=== PATIENT | female | born 1985 | race Caucasian/White ===

== ENCOUNTER 2023-10-13 07:43 | Inpatient (IN) ==
[2023-10-13] MEDS ORDERED: OXYTOCIN 30 UNITS/NSS 30 UNITS/500 ML BAG IV PRN ×3 (07:50→22:30)
[2023-10-13] MEDS ORDERED: LIDOCAINE 1% LOCAL 20 ML VIAL INFIL PRN (07:50)
--- NOTE | 2023-10-13 08:09 | History & Physical Report ---
Date of Service October 13, 2023 Assessment & Plan (1) Encounter for induction of labor: (2) Insulin controlled gestational diabetes mellitus (GDM) during : (3) Factor 5 Leiden mutation, heterozygous: Plan Pitocin AROM when indicated Monitor tracing, currently cat 1 Monitor BG q4 Admission and Anticipated Discharge Date Admission Date: October 13, 2023 History of Present Illness Primary Care Provider: Benigno Khoury 38 yo at 40w0d admitted for IOL for GDM. Gestational DM, Factor V Leiden on Heparin Denies BOURGEOIS, CP, SOB, N/V/D, LE pain. GBS neg, RH+ +fm -LOF -VB/VD Last dose heparin 10/12/23 PM Desires epidural Allergies Allergy/AdvReac Type Severity Reaction Status Date / Time No Known Allergies Allergy Mild Verified 10/12/23 14:43 Home Medications Medication Instructions Recorded Confirmed Type prenat.vits,amber,kmd-sfml-tnich 1 tab PO DAILY 03/03/23 10/13/23 History acetone (urine) test (Ketone Urine #50 ea 05/14/23 10/12/23 Rx Test strips) blood sugar diagnostic (OneTouch #150 ea 05/14/23 10/12/23 Rx Verio test strips) blood-glucose meter (OneTouch #1 ea 05/14/23 10/12/23 Rx Verio Reflect Meter) breast pump #1 ea 08/09/23 10/12/23 Rx pen needle, diabetic 32 gauge x #100 ea 08/30/23 10/12/23 Rx 5/32" (BD Ultra-Fine Lisbeth Pen Needle) insulin NPH isoph U-100 human 100 30 unit subcut QPM 09/07/23 10/13/23 History unit/mL (3 mL) subcutaneous pen (Novolin N FlexPen) heparin (bovine) 1,000 unit/mL 5,000 unit Q12 10/13/23 10/13/23 History injection solution Patient History Medical History (Updated 10/13/23 @ 08:17 by Jose Antonio Schultz DO) Melanoma Factor 5 Leiden mutation, heterozygous 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 High risk for intrapartum complications, antepartum Surgical History H/O dilation and curettage S/P lymph node biopsy S/P tooth extraction Family History Grandmother (Maternal) Breast cancer Father Factor V Leiden mutation Social History (Updated 10/13/23 @ 08:00 by Nae Carbajal, FIDENCIO) Smoking Status: Never smoker Do You Dip or Chew Tobacco: No; Hx Alcohol Use: No Hx Substance Use: No Preferred Language: Hong Konger Communication Ability: Effective Employee Communications Coordinator Required: No Beliefs That Will Affect Care: None marital status: marital status details: Stanislaw Palm (40) [phone] Current Living Situation: Spouse and Family Current Living Situation Comment: lives with , 2 daughters, & dog current occupational status: employed current occupation: [employer] office Other Information That Helps Us Care for You: No Feels Safe at Home: Yes Safety Concerns: Feels Safe At This Time Diet: regular Diet Comment: GDM Assistive Devices: None Review of Systems reviewed, per HPI Physical Exam Physical Exam: General: patient resting comfortably, NAD, non-toxic in appearance, answers questions appropriately. Skin: warm, dry, intact HEENT: NC/AT, anicteric sclera, conjunctiva without injection, moist mucus membranes Heart: +S1/S2, regular, no m/r/g Lungs: equal air entry bilaterally, no rales/rhonchi/wheezes Abd: +BS, soft, NT/ND, gravid uterus Cervical: 4|75|-2| Ext: warm, no clubbing/cyanosis or edema Neuro: speech intact, no facial droop, moving all extremities on command. : FHR baseline 130-140, moderate variability, accelerations present, decelerations absent Results & Data Vital Signs (Past 12 Hours) Vital Signs Pulse BP 10/13/23 07:55 78 117/62 Supervising Physician Co-Signing Physician Notes Resident Physician Supervision Note: I interviewed and examined the patient. Discussed with and agree with findings and plan as documented in the note. Any exceptions or clarifications are listed here: [None] Documented By: Yamila Norman MD, FACOG Resident Activity Tracking Resident Involvement: Resident Care Provided Care Provided: Adult Hospital Medicine
[2023-10-13 08:21] LABS: Hematocrit (blood only) 33.6 % (37.0-47.0); Hemoglobin 11.6 g/dl (12.0-16.0); Mean Corpuscular Hemoglobin 29.7 pg (25.0-34.0); Mean Corpuscular Hgb Conc 34.5 g/dL (32.0-36.0); Mean Corpuscular Volume 86.2 fL (80.0-100.0); Mean Platelet Volume 11.3 fL (9.4-12.4); Platelet Count 141 K/uL (130-400); RDW Coefficient of Variation 15.5 % (11.5-14.5); White Blood Count 7.94 K/ul (4.8-10.8)
[2023-10-13] MEDS: LACTATED RINGER'S 1,000 ML IV PRN ×3 (09:15→17:24)
[2023-10-13] MEDS ORDERED: fentaNYL citrate PF 100 MCG/2 ML VIAL ONE (12:53)
[2023-10-13] MEDS ORDERED: ePHEDrine sulfate 50 MG/ML AMP ONE ×2 (12:53→13:00)
[2023-10-13] MEDS ORDERED: BUPIVACAINE 0.25% PF 30 ML VIAL ONE (12:53)
[2023-10-13] MEDS ORDERED: fentANYL 2 MCG/ML BUPIVacaine 0.125%-NSS 100ML BAG ONE (12:53)
[2023-10-13] MEDS ORDERED: LIDOCAINE 2%/EPINEPHRINE 1:200,000 20 ML PF ONE (12:53)
[2023-10-13] MEDS ORDERED: SODIUM CHLORIDE 0.9% PF INJ 10 ML VIAL ONE (12:53)
[2023-10-13] MEDS ORDERED: NALOXONE HCL 1 MG in SODIUM CHLORIDE 0.9% 1,000 ML IV PRN (13:21)
[2023-10-13] MEDS ORDERED: ROPIVACAINE 0.5% PF 5 MG/ML 20 ML VIAL EPI PRN (13:21)
[2023-10-13] MEDS ORDERED: NALOXONE HCL 0.4 MG/1 ML VIAL/CARP IV PRN (13:21)
[2023-10-13] MEDS ORDERED: fentaNYL citrate PF 100 MCG/2 ML VIAL EPI STA (13:21)
[2023-10-13] MEDS ORDERED: ePHEDrine sulfate 50 MG/ML AMP IV PRN (13:21)
[2023-10-13] MEDS ORDERED: SODIUM CHLORIDE 0.9% PF INJ 10 ML VIAL EPI STA (13:21)
[2023-10-13] MEDS ORDERED: diphenhydrAMINE 50 MG/ML VIAL IV PRN (13:21)
[2023-10-13] MEDS ORDERED: BUPIVACAINE 0.25% PF 30 ML VIAL EPI STA (13:21)
[2023-10-13] MEDS ORDERED: fentaNYL citrate PF 100 MCG/2 ML VIAL IV PRN (13:21)
[2023-10-13] MEDS ORDERED: NALBUPHINE HCL 5 MG in SYRINGE 0 ML IV PRN (13:21)
[2023-10-13] MEDS ORDERED: fentANYL 2 MCG/ML BUPIVacaine 0.125%-NSS 100ML BAG EPI PRN (13:21)
[2023-10-13] MEDS ORDERED: LIDOCAINE 2%/EPINEPHRINE 1:200,000 20 ML PF EPI STA (13:21)
[2023-10-13] MEDS ORDERED: BUPIVACAINE 0.25% PF 30 ML VIAL EPI PRN (13:21)
[2023-10-13] MEDS ORDERED: LIDOCAINE 2% MPF LOCAL 5 ML VIAL EPI PRN (13:21)
[2023-10-13] MEDS ORDERED: SODIUM CHLORIDE 0.9% PF INJ 10 ML VIAL EPI PRN (13:21)
[2023-10-13] MEDS ORDERED: fentaNYL citrate PF 100 MCG/2 ML VIAL EPI PRN (13:21)
--- NOTE | 2023-10-13 13:21 | Anesthesiology Consultation ---
Date of Service October 13, 2023 Assessment & Plan (1) Encounter for pre-operative examination: Chart Review Chart Review: Patient NOT seen in Pre Admission Testing and Acceptable Risk for Labor Epidural Consults Requested none History Height/Weight Height: 5 ft 3 in Weight: 91.626 kg Allergies Allergy/AdvReac Type Severity Reaction Status Date / Time No Known Allergies Allergy Mild Verified 10/12/23 14:43 Medications Home Medications Medication Instructions Recorded Confirmed Last Taken prenat.vits,amber,urv-qkzb-hkzgv 1 tab PO DAILY 03/03/23 10/13/23 10/12/23 acetone (urine) test (Ketone Urine #50 ea 05/14/23 10/12/23 Unknown Test strips) blood sugar diagnostic (OneTouch #150 ea 05/14/23 10/12/23 Unknown Verio test strips) blood-glucose meter (OneTouch #1 ea 05/14/23 10/12/23 Unknown Verio Reflect Meter) breast pump #1 ea 08/09/23 10/12/23 Unknown pen needle, diabetic 32 gauge x #100 ea 08/30/23 10/12/23 Unknown 32" (BD Ultra-Fine Lisbeth Pen Needle) insulin NPH isoph U-100 human 100 30 unit subcut QPM 09/07/23 10/13/23 10/12/23 20:30 unit/mL (3 mL) subcutaneous pen (Novolin N FlexPen) heparin (bovine) 1,000 unit/mL 5,000 unit Q12 10/13/23 10/13/23 10/12/23 19:45 injection solution Active Medications Generic Name Dose Route Start Last Admin Trade Name Freq PRN Reason Stop Dose Admin Oxytocin 30 units in 500 mls @ 9 mls/hr 10/13/23 07:50 10/13/23 12:05 Pitocin 30 Units/Nss IV 10/15/23 07:49 0.54 units/hr .Q24H PRN 9 mls/hr Labor Induction/Augmentation Titration Protocol 0.54 UNITS/HR Lactated Ringer's 1,000 mls @ 125 mls/hr 10/13/23 07:50 10/13/23 13:11 Lr IV 10/15/23 07:49 999 mls/hr .Q8H PRN Infusion L&D Protocol Protocol Past Medical History Medical History Melanoma Factor 5 Leiden mutation, heterozygous 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 High risk for intrapartum complications, antepartum Past Family History Family History Grandmother (Maternal) Breast cancer Father Factor V Leiden mutation Past Surgical History Surgical History S/P lymph node biopsy H/O dilation and curettage MAB S/P tooth extraction Social History Smoking Status: Never smoker Do You Dip or Chew Tobacco: No Hx Alcohol Use: No Hx Substance Use: No Physical Exam Vital Signs Last Vital Signs Temp 98.1 F 10/13/23 11:12 Pulse 81 10/13/23 12:05 Resp 20 10/13/23 12:05 BP 122/68 10/13/23 12:05 Testing Laboratory Results 10/13/23 08:04 Blood Type AB Positive 10/13/23 08:04 Antibody Screen NEGATIVE 10/13/23 08:04 10/13/23 11:08 POC Glucose 78
--- NOTE | 2023-10-13 22:25 | Delivery Summary ---
Vaginal Delivery Summary Date of Service October 13, 2023 Vaginal Delivery Summary and 1st Degree LAC Patient is a 38-year-old 12 para 2-0-9-2 female EDC 10/13/2023 who presents for induction of labor because of GDM on insulin and factor V Leiden requiring heparin therapy. Pitocin induction was begun and membranes were ruptured for clear fluid. She received effective epidural analgesia. She progressed to full dilation and pushed effectively over intact perineum for d elivery of a viable female infant. Presentation was direct OP. After the head was delivered, the rest the infant delivered easily and was placed on the mother's abdomen for further attention and drying. She was vigorous crying and moving all 4 limbs. After 1 minute, the cord was clamped and cut. After cord blood was obtained, the placenta was expressed intact with a three-vessel cord. There was a true knot in the cord as an incidental finding. A first-degree perineal laceration was repaired with 3-0 chromic in usual fashion. Estimated blood loss is 200 cc. bleeding was controlled with dilute Pitocin and fundal massage. Her bladder was straight cathed for a small amount of urine at the end of the case. Mother and infant were doing well after delivery. MNP Vaginal Delivery Charge Delivery Type Details: and 1st Degree LAC
[2023-10-13] MEDS ORDERED: oxyCODONE/ACETAMINOPHEN 5mg/325mg TAB PO PRN (22:30)
[2023-10-13] MEDS ORDERED: BENZOCAINE 20% SPRY 85 APPLN/85 GM CAN EXT PRN (22:30)
[2023-10-13] MEDS ORDERED: IBUPROFEN 600 MG TAB PO PRN (22:30)
[2023-10-13] MEDS ORDERED: DIPHTHERIA/TETANUS/PERTUSSIS Vaccine (Tdap, Age 7+yrs) 0.5mL SYR/VL IM ONE (22:30)
[2023-10-13] MEDS ORDERED: HYDROCORTISONE ACETATE 25 MG SUPP PR PRN (22:30)
[2023-10-13] MEDS ORDERED: bisacodyL 10 MG SUPP PR PRN (22:30)
--- NOTE | 2023-10-13 22:39 | Anesthesia Procedure Note ---
Date of Service October 13, 2023 Anesthesia Post Epidural Note Vital Signs Vital Signs: Temp Pulse Resp BP Pulse Ox 98.2 F 88 18 134/66 95 10/13/23 20:10 10/13/23 22:36 10/13/23 20:10 10/13/23 22:36 10/13/23 22:34 Notes Mental Status: alert / awake / arousable and participated in evaluation Nausea / Vomiting: adequately controlled Pain: adequately controlled Airway Patency, RR, SpO2: stable & adequate BP & HR: stable & adequate Hydration State: stable & adequate Neuraxial Anesthesia: was administered and sensory block is resolving Anesthetic Complications: no major complications apparent and Pt Satisfied with anesthetic care Epidural: Removed without complications and With tip intact
[2023-10-14] MEDS: ACETAMINOPHEN 325 MG TAB PO PRN ×2 (02:51→08:15)
--- NOTE | 2023-10-14 06:43 | History & Physical Report ---
Date of Service October 14, 2023 Assessment & Plan (1) care following vaginal delivery: Plan: Doing well encourage amulation pain control discharge tomorrow (2) Gestational diabetes mellitus (GDM) affecting , antepartum: Plan: Blood glucose well controlled since admission without insulin (3) Factor 5 Leiden mutation, heterozygous: Plan: has home supply of lovenox with refills from Dr. Guillen Admission and Anticipated Discharge Date Admission Date: October 13, 2023 History of Present Illness Chief Complaint: Primary Care Provider: Benigno Khoury 38 yo post day 1 s/p Hx factor V leiden, GDM on insulin Blood glucose well controlled without insulin since admission Has lovenox supply at home with refills from Dr. Guillen Ambulation: ambulating normally Voiding: no voiding problems Passing Gas:: Yes Diet Tolerance:: regular diet Lochia:: Small Feeding Type:: breast feeding Current Pain Level: mild Resting comfortably this AM in NAD. Denies BOURGEOIS, CP, SOB, N/V/D, LE pain/swelling. Desires discharge tomorrow Allergies Allergy/AdvReac Type Severity Reaction Status Date / Time No Known Allergies Allergy Mild Verified 10/12/23 14:43 Home Medications Medication Instructions Recorded Confirmed Type prenat.vits,amber,oph-dkkr-pdxyz 1 tab PO DAILY 03/03/23 10/13/23 History acetone (urine) test (Ketone Urine #50 ea 05/14/23 10/12/23 Rx Test strips) blood sugar diagnostic (OneTouch #150 ea 05/14/23 10/12/23 Rx Verio test strips) blood-glucose meter (OneTouch #1 ea 05/14/23 10/12/23 Rx Verio Reflect Meter) breast pump #1 ea 08/09/23 10/12/23 Rx pen needle, diabetic 32 gauge x #100 ea 08/30/23 10/12/23 Rx 5/32" (BD Ultra-Fine Lisbeth Pen Needle) insulin NPH isoph U-100 human 100 30 unit subcut QPM 09/07/23 10/13/23 History unit/mL (3 mL) subcutaneous pen (Novolin N FlexPen) heparin (bovine) 1,000 unit/mL 5,000 unit Q12 10/13/23 10/13/23 History injection solution Patient History Medical History Melanoma Factor 5 Leiden mutation, heterozygous 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 High risk for intrapartum complications, antepartum Surgical History S/P lymph node biopsy H/O dilation and curettage MAB S/P tooth extraction Family History Grandmother (Maternal) Breast cancer Father Factor V Leiden mutation Social History (Updated 10/13/23 @ 08:00 by Nae Carbajal RN) Smoking Status: Never smoker Do You Dip or Chew Tobacco: No; Hx Alcohol Use: No Hx Substance Use: No Preferred Language: Welsh Communication Ability: Effective Cardiac Exercise Specialist Required: No Beliefs That Will Affect Care: None marital status: marital status details: Stanislaw Palm (40) [phone] Current Living Situation: Spouse and Family Current Living Situation Comment: lives with , 2 daughters, & dog current occupational status: employed current occupation: [email or web address] office Other Information That Helps Us Care for You: No Feels Safe at Home: Yes Safety Concerns: Feels Safe At This Time Diet: regular Diet Comment: GDM Assistive Devices: None Review of Systems reviewed, per HPI Physical Exam Physical Exam: General: patient resting comfortably, NAD, non-toxic in appearance, answers questions appropriately. Skin: warm, dry, intact HEENT: NC/AT, anicteric sclera, conjunctiva without injection, moist mucus membranes. Heart: +S1/S2, regular, no m/r/g Lungs: equal air entry bilaterally, no rales/rhonchi/wheezes Abd: +BS, soft, NT/ND, uterine fundus firm at umbilicus Ext: warm, no clubbing/cyanosis or edema, Vahe's neg. Neuro: speech intact, no facial droop, moving all extremities on command. Results & Data Vital Signs (Past 12 Hours) Vital Signs Temp Pulse Pulse Resp BP BP Pulse Ox 10/14/23 03:05 37.0 C 84 18 121/72 96 10/14/23 00:30 36.7 C 76 16 120/74 95 10/14/23 00:15 36.9 C 18 10/14/23 00:07 90 120/71 10/13/23 23:38 103 H 130/66 10/13/23 23:06 86 122/68 10/13/23 22:53 82 111/66 10/13/23 22:36 88 134/66 10/13/23 22:34 89 95 10/13/23 22:29 93 H 96 10/13/23 22:24 97 H 95 10/13/23 22:21 100 H 134/58 L 10/13/23 22:19 101 H 95 10/13/23 22:14 105 H 95 10/13/23 22:09 108 H 96 10/13/23 22:06 111 H 126/61 10/13/23 22:04 115 H 96 10/13/23 21:59 108 H 96 10/13/23 21:54 112 H 97 10/13/23 21:51 118 H 142/63 H 10/13/23 21:49 115 H 97 10/13/23 21:48 105 H 87 L 10/13/23 21:44 137 H 98 10/13/23 21:39 106 H 96 10/13/23 21:37 95 H 131/63 10/13/23 21:36 111 H 89 L 10/13/23 21:34 103 H 97 10/13/23 21:29 102 H 85 L 10/13/23 21:28 103 H 97 10/13/23 21:23 97 10/13/23 21:23 86 10/13/23 21:23 118 H 145/63 H 89 L 10/13/23 21:18 84 97 10/13/23 21:13 105 H 96 10/13/23 21:08 82 95 10/13/23 21:06 113 H 117/62 10/13/23 21:03 90 96 10/13/23 20:58 86 94 10/13/23 20:53 81 95 10/13/23 20:51 88 125/64 10/13/23 20:48 85 95 10/13/23 20:43 81 94 10/13/23 20:38 78 94 10/13/23 20:36 78 112/60 10/13/23 20:35 75 93 10/13/23 20:33 80 95 10/13/23 20:28 81 95 10/13/23 20:23 83 95 10/13/23 20:21 86 114/64 10/13/23 20:18 85 95 10/13/23 20:13 89 95 10/13/23 20:10 18 10/13/23 20:10 36.8 C 18 10/13/23 20:08 96 10/13/23 20:08 83 10/13/23 20:08 81 133/63 10/13/23 20:03 84 95 10/13/23 19:58 82 93 10/13/23 19:53 83 94 10/13/23 19:52 80 109/56 L 10/13/23 19:48 85 94 10/13/23 19:43 82 95 10/13/23 19:38 94 10/13/23 19:38 83 10/13/23 19:38 81 108/58 L 10/13/23 19:33 84 94 10/13/23 19:31 83 93 10/13/23 19:28 85 96 10/13/23 19:23 81 94 10/13/23 19:21 83 110/57 L 10/13/23 19:19 84 93 10/13/23 19:18 84 94 10/13/23 19:13 99 H 95 10/13/23 19:10 18 10/13/23 19:10 36.8 C 18 10/13/23 19:08 86 96 10/13/23 19:07 85 116/62 10/13/23 19:03 85 95 10/13/23 18:59 84 93 10/13/23 18:58 85 93 10/13/23 18:53 83 94 10/13/23 18:51 83 115/56 L 10/13/23 18:48 82 94 10/13/23 18:44 85 93 10/13/23 18:43 82 94 O2 Del Method 10/14/23 03:05 Room Air 10/14/23 00:30 Room Air 10/14/23 00:15 10/14/23 00:07 10/13/23 23:38 10/13/23 23:06 10/13/23 22:53 10/13/23 22:36 10/13/23 22:34 10/13/23 22:29 10/13/23 22:24 10/13/23 22:21 10/13/23 22:19 10/13/23 22:14 10/13/23 22:09 10/13/23 22:06 10/13/23 22:04 10/13/23 21:59 10/13/23 21:54 10/13/23 21:51 10/13/23 21:49 10/13/23 21:48 10/13/23 21:44 10/13/23 21:39 10/13/23 21:37 10/13/23 21:36 10/13/23 21:34 10/13/23 21:29 10/13/23 21:28 10/13/23 21:23 10/13/23 21:23 10/13/23 21:23 10/13/23 21:18 10/13/23 21:13 10/13/23 21:08 10/13/23 21:06 10/13/23 21:03 10/13/23 20:58 10/13/23 20:53 10/13/23 20:51 10/13/23 20:48 10/13/23 20:43 10/13/23 20:38 10/13/23 20:36 10/13/23 20:35 10/13/23 20:33 10/13/23 20:28 10/13/23 20:23 10/13/23 20:21 10/13/23 20:18 10/13/23 20:13 10/13/23 20:10 10/13/23 20:10 10/13/23 20:08 10/13/23 20:08 10/13/23 20:08 10/13/23 20:03 10/13/23 19:58 10/13/23 19:53 10/13/23 19:52 10/13/23 19:48 10/13/23 19:43 10/13/23 19:38 10/13/23 19:38 10/13/23 19:38 10/13/23 19:33 10/13/23 19:31 10/13/23 19:28 10/13/23 19:23 10/13/23 19:21 10/13/23 19:19 10/13/23 19:18 10/13/23 19:13 10/13/23 19:10 10/13/23 19:10 10/13/23 19:08 10/13/23 19:07 10/13/23 19:03 10/13/23 18:59 10/13/23 18:58 10/13/23 18:53 10/13/23 18:51 10/13/23 18:48 10/13/23 18:44 10/13/23 18:43 Resident Activity Tracking Resident Involvement: Resident Care Provided Care Provided: Adult [facility] Medicine
--- NOTE | 2023-10-14 06:49 | Obstetrical Progress Note ---
Date of Service October 14, 2023 Assessment & Plan (1) care following vaginal delivery: Plan: Doing well Encourage ambulation Pain control Discharge tomorrow (2) Insulin controlled gestational diabetes mellitus (GDM) during : Plan: Blood glucose well controlled since admission without use of insulin (3) Factor 5 Leiden mutation, heterozygous: Plan: Has home supply of lovenox with refills from Dr. Guillen Admission and Anticipated Discharge Date Admission Date: October 13, 2023 Supervising Physician Co-Signing Physician Notes Resident Physician Supervision Note: I interviewed and examined the patient. Discussed with Dr. Schultz and agree with findings and plan as documented in the note. Any exceptions or clarifications are listed here: [None] Documented By: Yamila Norman MD, FACOG Subjective 38 yo post day 1 s/p Ambulation: ambulating normally Voiding: no voiding problems Passing Gas:: Yes Diet Tolerance:: regular diet Lochia:: Small Feeding Type:: breast feeding Current Pain Level: mild Resting comfortably this AM in NAD. Denies BOURGEOIS, CP, SOB, N/V/D, LE pain/swelling. Review of Systems Review of Systems: reviewed, per HPI Physical Exam Physical Exam: General: patient resting comfortably, NAD, non-toxic in appearance, answers questions appropriately. Skin: warm, dry, intact HEENT: NC/AT, anicteric sclera, conjunctiva without injection, moist mucus membranes. Heart: +S1/S2, regular, no m/r/g Lungs: equal air entry bilaterally, no rales/rhonchi/wheezes Abd: +BS, soft, NT/ND, uterine fundus firm at umbilicus Ext: warm, no clubbing/cyanosis or edema, Vahe's neg. Neuro: speech intact, no facial droop, moving all extremities on command. Results & Data Vital Signs (Past 12 Hours) Vital Signs Temp Pulse Pulse Resp BP BP Pulse Ox 10/14/23 03:05 37.0 C 84 18 121/72 96 10/14/23 00:30 36.7 C 76 16 120/74 95 10/14/23 00:15 36.9 C 18 10/14/23 00:07 90 120/71 10/13/23 23:38 103 H 130/66 10/13/23 23:06 86 122/68 10/13/23 22:53 82 111/66 10/13/23 22:36 88 134/66 10/13/23 22:34 89 95 10/13/23 22:29 93 H 96 10/13/23 22:24 97 H 95 10/13/23 22:21 100 H 134/58 L 10/13/23 22:19 101 H 95 10/13/23 22:14 105 H 95 10/13/23 22:09 108 H 96 10/13/23 22:06 111 H 126/61 10/13/23 22:04 115 H 96 10/13/23 21:59 108 H 96 10/13/23 21:54 112 H 97 10/13/23 21:51 118 H 142/63 H 10/13/23 21:49 115 H 97 10/13/23 21:48 105 H 87 L 10/13/23 21:44 137 H 98 10/13/23 21:39 106 H 96 10/13/23 21:37 95 H 131/63 10/13/23 21:36 111 H 89 L 10/13/23 21:34 103 H 97 10/13/23 21:29 102 H 85 L 10/13/23 21:28 103 H 97 10/13/23 21:23 97 10/13/23 21:23 86 10/13/23 21:23 118 H 145/63 H 89 L 10/13/23 21:18 84 97 10/13/23 21:13 105 H 96 10/13/23 21:08 82 95 10/13/23 21:06 113 H 117/62 10/13/23 21:03 90 96 10/13/23 20:58 86 94 10/13/23 20:53 81 95 10/13/23 20:51 88 125/64 10/13/23 20:48 85 95 10/13/23 20:43 81 94 10/13/23 20:38 78 94 10/13/23 20:36 78 112/60 10/13/23 20:35 75 93 10/13/23 20:33 80 95 10/13/23 20:28 81 95 10/13/23 20:23 83 95 10/13/23 20:21 86 114/64 10/13/23 20:18 85 95 10/13/23 20:13 89 95 10/13/23 20:10 18 10/13/23 20:10 36.8 C 18 10/13/23 20:08 96 10/13/23 20:08 83 10/13/23 20:08 81 133/63 10/13/23 20:03 84 95 10/13/23 19:58 82 93 10/13/23 19:53 83 94 10/13/23 19:52 80 109/56 L 10/13/23 19:48 85 94 10/13/23 19:43 82 95 10/13/23 19:38 94 10/13/23 19:38 83 10/13/23 19:38 81 108/58 L 10/13/23 19:33 84 94 10/13/23 19:31 83 93 10/13/23 19:28 85 96 10/13/23 19:23 81 94 10/13/23 19:21 83 110/57 L 10/13/23 19:19 84 93 10/13/23 19:18 84 94 10/13/23 19:13 99 H 95 10/13/23 19:10 18 10/13/23 19:10 36.8 C 18 10/13/23 19:08 86 96 10/13/23 19:07 85 116/62 10/13/23 19:03 85 95 10/13/23 18:59 84 93 10/13/23 18:58 85 93 10/13/23 18:53 83 94 10/13/23 18:51 83 115/56 L 10/13/23 18:48 82 94 O2 Del Method 10/14/23 03:05 Room Air 10/14/23 00:30 Room Air 10/14/23 00:15 10/14/23 00:07 10/13/23 23:38 10/13/23 23:06 10/13/23 22:53 10/13/23 22:36 10/13/23 22:34 10/13/23 22:29 10/13/23 22:24 10/13/23 22:21 10/13/23 22:19 10/13/23 22:14 10/13/23 22:09 10/13/23 22:06 10/13/23 22:04 10/13/23 21:59 10/13/23 21:54 10/13/23 21:51 10/13/23 21:49 10/13/23 21:48 10/13/23 21:44 10/13/23 21:39 10/13/23 21:37 10/13/23 21:36 10/13/23 21:34 10/13/23 21:29 10/13/23 21:28 10/13/23 21:23 10/13/23 21:23 10/13/23 21:23 10/13/23 21:18 10/13/23 21:13 10/13/23 21:08 10/13/23 21:06 10/13/23 21:03 10/13/23 20:58 10/13/23 20:53 10/13/23 20:51 10/13/23 20:48 10/13/23 20:43 10/13/23 20:38 10/13/23 20:36 10/13/23 20:35 10/13/23 20:33 10/13/23 20:28 10/13/23 20:23 10/13/23 20:21 10/13/23 20:18 10/13/23 20:13 10/13/23 20:10 10/13/23 20:10 10/13/23 20:08 10/13/23 20:08 10/13/23 20:08 10/13/23 20:03 10/13/23 19:58 10/13/23 19:53 10/13/23 19:52 10/13/23 19:48 10/13/23 19:43 10/13/23 19:38 10/13/23 19:38 10/13/23 19:38 10/13/23 19:33 10/13/23 19:31 10/13/23 19:28 10/13/23 19:23 10/13/23 19:21 10/13/23 19:19 10/13/23 19:18 10/13/23 19:13 10/13/23 19:10 10/13/23 19:10 10/13/23 19:08 10/13/23 19:07 10/13/23 19:03 10/13/23 18:59 10/13/23 18:58 10/13/23 18:53 10/13/23 18:51 10/13/23 18:48 Resident Activity Tracking Resident Involvement: Resident Care Provided Care Provided: Adult [facility] Medicine
[2023-10-14 07:36] LABS: Hematocrit (blood only) 30.9 % (37.0-47.0); Hemoglobin 10.6 g/dl (12.0-16.0); Mean Corpuscular Hemoglobin 29.7 pg (25.0-34.0); Mean Corpuscular Hgb Conc 34.3 g/dL (32.0-36.0); Mean Corpuscular Volume 86.6 fL (80.0-100.0); Mean Platelet Volume 11.4 fL (9.4-12.4); Platelet Count 155 K/uL (130-400); RDW Coefficient of Variation 15.2 % (11.5-14.5); RDW Standard Deviation 48.5 fL (36.4-46.3); Red Blood Count 3.57 M/uL (4.20-5.40); White Blood Count 14.13 K/ul (4.8-10.8)
[2023-10-14] MEDS: PRENATAL VITAMIN 1 TAB PO SCH (08:15)
[2023-10-14] MEDS: DOCUSATE SODIUM 100 MG CAP PO SCH ×2 (08:15→20:30)
[2023-10-14] MEDS: ENOXAPARIN INJ 40 MG/0.4 ML SYR SQ SCH (10:23)
[2023-10-14] MEDS ORDERED: bisacodyL 5 MG TABEC PO SCH (20:00)
--- NOTE | 2023-10-15 07:11 | Obstetrical Progress Note ---
Date of Service October 15, 2023 Assessment & Plan (1) care following vaginal delivery: recovered well PP. D/C to home today, instructions reviewed, continue lovenox 6wk ppx and patient already has med supply at home. Subjective Ambulation: ambulating normally Voiding: no voiding problems Passing Gas:: Yes Diet Tolerance:: regular diet Lochia:: Small Feeding Type:: breast feeding Physical Exam Constitutional WD/WN, vitals as above Eyes PERRL, conjunctivae normal, anicteric sclerae Neck normal visual inspection Respiratory normal respiratory effort and able to speak in complete sentences; no respiratory distress and no labored breathing Cardiovascular Rate/Rhythm: regular rate and regular rhythm Extremities: no edema Chest (Breasts) Chest: normal inspection of chest Gastrointestinal (Abdomen) Inspection/Auscultation: abdomen normal to inspection Soft, postgravid Psychiatric A+Ox3, euthymic affect Genitourinary OB Exam Abdomen: + fundal height Fundus: + firm and + relation to umbilicus (fundus just below umbilicus); not tender Results & Data Vital Signs (Past 12 Hours) Vital Signs Temp Pulse Pulse Resp BP BP Pulse Ox 10/14/23 23:45 98.2 F 67 16 123/76 97 10/14/23 19:45 98.1 F 68 18 111/75 96 O2 Del Method 10/14/23 23:45 Room Air 10/14/23 19:45 Room Air
[2023-10-15 07:35] LABS: Hematocrit (blood only) 33.1 % (37.0-47.0); Hemoglobin 11.1 g/dl (12.0-16.0)
[2023-10-15] MEDS: DOCUSATE SODIUM 100 MG CAP PO SCH (08:05)
[2023-10-15] MEDS: PRENATAL VITAMIN 1 TAB PO SCH (08:05)
[2023-10-15] MEDS: ENOXAPARIN INJ 40 MG/0.4 ML SYR SQ SCH (08:49)
== END 2023-10-15 13:00 | disposition home or self-care (01) | DRG 806 ==
LOC: 4S1 07:43 → 4E2 10-14 00:36